=== PATIENT | male | born 1985 | race Caucasian/White ===

== ENCOUNTER 2020-12-14 12:45 | Emergency (ER) | payer SELFPAY ==
[~2020-12-14] VITALS: Ht 185.4 cm; Wt 99.8 kg
== END 2020-12-14 15:50 | disposition home or self-care (01) ==
LOC: ER1 12:45
DX: Z23 Encounter for immunization (principal); U07.1 COVID-19; J45.909 Unspecified asthma, uncomplicated
CPT/HCPCS: 99283; M0243